=== PATIENT | female | born 1975 | race Caucasian/White ===

== ENCOUNTER 2019-05-19 05:36 | Outpatient (CLI) | payer BC ==
[~2019-05-19] VITALS: Ht 170.2 cm; Wt 129.5 kg
[2019-05-19] MEDS ORDERED: CHOL500049 PO (10:58)
[2019-05-25] MEDS ORDERED: ACHD5005 PO (10:32)
[2019-05-25] MEDS ORDERED: CEPH500C PO (10:32)
== END 2019-05-19 14:59 ==
LOC: PREOP 05:36
PROVIDERS: ATTEND Podiatrist Foot & Ankle Surgery
DX: Z01.818 Encounter for other preprocedural examination (principal)

== ENCOUNTER 2019-05-25 06:03 | Day surgery (SDC) | payer BC ==
[2019-05-25] VITALS (10 sets, daily range): BP systolic 113–142; BP diastolic 72–96
[~2019-05-25] VITALS: Ht 170 cm; Wt 129.5 kg
[~2019-05-25 06:03] MED LIST: CHOL500049 PO
[2019-05-25] MEDS ORDERED: ceFAZolin INJECTION 1,000 MG in WATER (STERILE) FOR INJECTION 10 ML IV ONE (06:15)
[2019-05-25] MEDS ORDERED: ceFAZolin INJECTION 1,000 MG ONE (06:42)
[2019-05-25] MEDS ORDERED: WATER (STERILE) FOR INJECTION 10 ML ONE (06:42)
[2019-05-25] MEDS ORDERED: fentaNYL INJECTION 100 MCG/2 ML AMP ONE (06:48)
[2019-05-25] MEDS ORDERED: MIDAZOLAM 2 MG/2 ML (VERSED) VIAL ONE (06:48)
[2019-05-25] MEDS: LACTATED RINGERS 1,000 ML IV PRN ×2 (07:06→10:09)
[2019-05-25] MEDS ORDERED: BUPIVACAINE 0.5% 30 ML (SENSORCAINE) VIAL ONE (07:11)
[2019-05-25] MEDS ORDERED: LIDOCAINE 1% INJ 20 ML 20 ML VIAL ONE (07:12)
--- NOTE | 2019-05-25 07:23 | Progress Note-Pre Operative ---
Pre-Operative Progress Note H&P Reviewed The H&P was reviewed, patient examined and no changes noted. Date Seen by Provider: May 25, 2019 Time Seen by Provider: 07:23 Date H&P Reviewed: May 25, 2019 Time H&P Reviewed: 07:23 Pre-Operative Diagnosis: Hallux Valgus, left ADAM PRICE DPM May 25, 2019 07:23 POS
[2019-05-25] MEDS ORDERED: DEXAMETHASONE 10 MG/ML (DECADRON) 1 ML VIAL ONE (07:45)
[2019-05-25] MEDS ORDERED: proPOfol 200 MG/20 ML (DIPRIVAN) VIAL IV ONE (08:14)
[2019-05-25] MEDS ORDERED: LIDOCAINE PF 2% 5 ML (XYLOCAINE) VIAL ONE (08:14)
[2019-05-25] MEDS ORDERED: ONDANSETRON 4 MG/2 ML (SDV) Z0FRAN ONE (08:14)
[2019-05-25] MEDS ORDERED: SEVOFLURANE (ULTANE) 15 ML INHAL SOLN ONE ×11 (08:14→10:16)
[2019-05-25] MEDS ORDERED: morphine INJ 10 MG/ML 1ML (SYR OR VIAL) ONE (09:17)
[2019-05-25] MEDS ORDERED: HYDROcodone/APAP 5 MG/325 MG (LORTAB) TAB PO PRN (10:30)
[2019-05-25] MEDS ORDERED: morphine INJ 10 MG/ML 1ML (SYR OR VIAL) IVP ONE (10:30)
[2019-05-25] MEDS ORDERED: MEPERIDINE (DEMEROL) INJ 50 MG/ML IVP ONE (10:30)
[2019-05-25] MEDS ORDERED: ONDANSETRON 4 MG/2 ML (SDV) Z0FRAN IVP PRN (10:30)
[2019-05-25] MEDS ORDERED: LACTATED RINGERS 1,000 ML IV SCH (10:30)
[2019-05-25] MEDS ORDERED: fentaNYL INJECTION 100 MCG/2 ML AMP IVP ONE (10:30)
--- NOTE | 2019-05-25 10:30 | Progress Note-Post Operative ---
Post-Operative Progess Note Surgeon (s)/Rope Coiling Machine Operator (s) Surgeon ADAM PRICE DPM Rope Coiling Machine Operator: none Pre-Operative Diagnosis Hallux Valgus, left Post-Operative Diagnosis same, plus failed hardware Procedure & Operative Findings Date of Procedure 05/25/19 Procedure Performed/Findings Lapidus-elizabeth bunionectomy, Removal of hardware, left foot Anesthesia Type General Estimated Blood Loss Estimated blood loss (mL): minimal Specimens/Packing Specimens Removed hardware from previous bunionectomy ADAM PRICE DPM May 25, 2019 10:30 POS
--- NOTE | 2019-05-25 10:31 | Diagnostic Imaging Report ---
INDICATION: Fluoroscopy utilized in surgery by Dr. Lnae for hardware removal. FINDINGS: No previous films for review. There are holes in the 1st metatarsal shaft consistent with previous hardware. There is sideplate present with bone screws along the 1st metatarsal tarsal joint which appear intact. IMPRESSION: Intraoperative film showing arthrodesis of the 1st MP joint. Hardware present as described. Dictated by: Dictated on workstation # [id number]
[2019-05-25] MEDS ORDERED: ACHD5005 PO (10:32)
[2019-05-25] MEDS ORDERED: CEPH500C PO (10:32)
--- NOTE | 2019-05-25 12:18 | Physical Therapy Progress Note ---
Therapy Progress Note Patient declined PT secondary to multiple foot surgeries prior and has established knee scooter and other AD for home use. Thank you for this referral. 1 ref ([id number]) JOSE C CARLIN PT May 25, 2019 12:18 POS
--- NOTE | 2019-05-25 13:18 | Anesthesia-General Post-Op ---
General Patient Condition Mental Status/LOC: Same as Preop Cardiovascular: Satisfactory Nausea/Vomiting: Absent Respiratory: Satisfactory Pain: Controlled Complications: Absent Post Op Complications Complications None Follow Up Care/Instructions Patient Instructions None needed. Anesthesia/Patient Condition Patient Condition Patient is doing well, no complaints, stable vital signs, no apparent adverse anesthesia problems. No complications reported per nursing. KARI ROSAS CRNA May 25, 2019 13:17 POS
--- NOTE | 2019-05-25 18:26 | OPERATIVE REPORT ---
DATE OF SERVICE: 05/25/2019 SURGEON: Makayla Lane DPM. PREOPERATIVE DIAGNOSES: 1. Hallux abductovalgus metatarsus primus varus. 2. Failed hardware. POSTOPERATIVE DIAGNOSES: 1. Hallux abductovalgus metatarsus primus varus. 2. Failed hardware, left foot. PROCEDURE: 1. Modified Lapidus Ty bunionectomy, left. 2. Removal of failed hardware, left. WOUND CLASS: Clean. ANESTHESIA: General. HEMOSTASIS: Pneumatic thigh tourniquet at 250 mmHg. INDICATIONS: This 44-year-old female presents complaining of painful left foot and bunion deformity. She has had a previous Lapidus bunionectomy. The screw fixation apparently has backed out and is causing some discomfort for the patient. Also, the great toe is drifting laterally and is overlapping and abutting the second digit. This is affecting her ambulation in comfortably wearing shoes. She is willing to proceed after risks and complications were discussed at length. No guarantees were extended to the patient and she is willing to proceed. DESCRIPTION OF PROCEDURE: The patient was brought back to the operating table, placed in secure supine position. General anesthetic was induced. Appropriate timeout was performed. A pneumatic thigh tourniquet was placed on the left lower extremity over several layers of padding. Utilizing aseptic technique, 10 mL of 0.5% Marcaine was injected in a Amaya block to the left foot. The left foot was then prepped and draped in normal sterile manner. The left foot was then elevated, allowed to exsanguinate after which the tourniquet was inflated to 250 mmHg. Attention was then directed to the dorsal aspect of the left foot where along the previous incision, a similar incision was created, which is approximately 10 cm in length. The incision extended from the medial cuneiform to the metatarsophalangeal joint and proximal phalanx area of the left first metatarsophalangeal joint. Dissection was carried out utilizing sharp and blunt dissection. The incision was deepened down to the capsular tissue of the first metatarsophalangeal joint as well as to the medial aspect of the extensor hallucis longus in the area of the hardware associated with the first metatarsal medial cuneiform fusion area. The incision was deepened down to the plate and screws, which were removed. The interfrag screw was very prominent and some inflammatory tissue was noted in the area overlying this screw. This is also in the area of the patient's described discomfort. The hardware was removed completely. Next, due to the fact that the first metatarsal remained in a valgus orientation, a new Lapidus was performed and because it was a short first metatarsal, it is advisable to utilize an allograft spacer. First, a power sagittal saw was utilized to create an opening at the first metatarsal medial cuneiform joint area. A second cut was performed to create more lateral deviation and plantar flexion of the distal first metatarsal. Utilizing a Blain 28 Lapidus system and allograft, an excellent reduction of the hallux valgus deformity was appreciated. First, there was a size 5 allograft Lapidus graft was placed and confirmed by C-arm that it was appropriate reduction of the patient's deformity. Next, a standard 4-hole left Lapidus plate was utilized with a most proximal screw of 3.5 mm diameter and 26 mm of length with locking screw placed. Next, an interfrag screw was applied. It was a 3.5 mm, 38 mm in length from distal dorsal to proximal plantar. Good compression across the allograft and the arthrodesis site was appreciated. Next, a 3.5 locking screw of 16 mm of length was applied to the remaining proximal hole of the locking of the plate. The two distal screws were 3.5 mm screws of 20 mm in length and 16 mm of length respectively. The last screw was a nonlocking screw. Again, C-arm was utilized to confirm appropriate alignment and there is a good reduction of the dorsiflexion and valgus rotation that was noted preoperatively. There was improved sesamoid position as well as alignment of the first metatarsophalangeal joint. There was a good reduction of the lateral deviation of the hallux, but it was then decided that an Ty type procedure would assist in further improvement of the alignment of the hallux. Blunt dissection was carried out into the first intermetatarsal space where a lateral release was performed. A lateral capsulorrhaphy was performed as well as release of the conjoint tendon of the adductor hallucis and the fibular sesamoidal ligament. Next, attention was taken to remove the 28-gauge monofilament wire from the proximal phalanx. Once this was done, a revisional Ty procedure was performed. A sagittal saw was utilized to create the osteotomy with the lateral cortices intact and the base of the osteotomy was medial. Once the gap was closed, this reduced the hallux valgus deformity further. Two river pilot holes were created at the dorsal medial aspect of the osteotomy after which a 28-gauge monofilament wire was then passed through this river pilot hole securing the osteotomy in a closed position. Excellent bony apposition and fixation was appreciated at this time. The whole wound was flushed with copious amounts of normal saline throughout the procedure. Closure was then performed in layers. Deep closure was performed with 3-0 Vicryl, superficial with 4-0 Vicryl, skin was closed with 4-0 Prolene in a horizontal mattress type stitch. Postoperative injection consisted of 12 mL of 0.5% Marcaine plain injected in a local infusion to the surgical site. Postoperative injection also included 10 mg dexamethasone injected into the first intermetatarsal space, left foot. Postoperative dressing consisted of Betadine soaked Adaptic, sterile 4 x 4, sterile Kerlix all secured with a Coban wrap. The patient tolerated the anesthesia and procedure well, was transported from the operating room to the recovery area with vital signs stable and vascular status intact to all digits of the left foot. She was given a prescription for Keflex and Vicodin. She is to follow up in my office in 10 days' period of time or sooner if necessary. Job ID: [id number] DocumentID: [id number] Dictated Date: 05/25/2019 10:47:21 Sticker On Date: 05/25/2019 18:25:18 Dictated By: CHRISTIANE WINKLER
--- OUTSIDE RECORDS SUMMARY | 2019-06-19 05:29 | XMS REPORT ---
Author Author Oriana Rodrigues [facility] Address [address] [place], [place] [id number] Care Team Providers Care Civil Drafting Technician Name Role Phone Fortunato Rodrigues PCP Unavailable Helder Ramirez PreferredProvider Allergies and Adverse Reactions Name Reaction Notes Norman Plan of Treatment Planned Activity Comments Planned Date Planned Time Plan/Goal Urine culture and sensitivity 03/07/2019 12:00 AM Medications Active Name Start Date Estimated Completion Date SIG Co mments Vitamin D3 400 unit oral capsule take 1 c apsule by oral route daily Multiple Vitamins oral tablet take 1 tabl et by oral route daily Calcium 500 500 mg calcium (1,250 mg) oral tablet take 1 tablet by oral route daily ibuprofen 800 mg oral tablet take 1 table t by oral route 2 times a day Cipro 500 mg oral tablet 03/07/2019 03/10/2019 take 1 tablet (500 mg) by oral route every 12 hours for 3 days Name Start Date Expiration Date SIG Comments Mirena Intrauterine IUD 20 mcg/24 hour (5 [address]) [address] 1 device by intrauterine route doxycycline hyclate Oral tablet 20 mg lefty e 1 tablet by oral route daily levofloxacin 500 mg oral tablet 07/23/2018 08/02/2018 take 1 tablet (500 mg) by oral route once daily for 10 days diclofenac sodium 75 mg oral tablet,delayed release (DR/EC) 09/2410/24/2018 take 1 tablet (75 mg) by oral route 2 times per day for 30 days Discontinued Name Start Date Discontinued Date SIG Comments doxycycline hyclate Oral capsule 100 mg 3 take 1 capsule (100 mg) by oral route once daily Mucinex D 60-600 mg oral tablet extended release 12 hr 02/12/2019 Advil Cold and Sinus oral 02/12/2019 albuterol sulfate inhalation 02/12/2019 ipratropium bromide 0.02 % inhalation solution 07/23/2018 inhale 1.25 milliliters (250 mcg) via nebulizer by inhalation route 3 times per day cholecalciferol (vitamin D3) 50,000 unit oral capsule 10/24/2018 01/12/2019 take 1 capsule by oral route once weekly dicyclomine 20 mg oral tablet 01/12/2019 02/12/2019 ta ke 1 tablet (20 mg) by oral route 4 times per day as needed Problem List Not available. Vital Signs Date Time BP-Sys(mm[Hg] BP-Grace(mm[Hg]) HR(bpm) RR(rpm) Temp WT HT HC BMI BSA BMI Percentile O2 Sat(%) 03/07/2019 11:38:00 AM 108 mm[Hg] 86 mm[Hg] 58 {beats}/min 16 rpm 98.1 F 182.25 lbs 67 in 28.5441 kg/m2 1.9768 m2 100 % 02/11/2019 8:02:00 AM 130 mm[Hg] 80 mm[Hg] 84 {beats}/min 16 rpm 97.4 F 187 lbs 67 in 29.29 kg/m2 2.00 m2 97 % 01/12/2019 4:42:00 PM 132 mm[Hg] 84 mm[Hg] 77 {beats}/min 16 rpm 97.5 F 192 lbs 67 in 30.0711 kg/m2 2.029 m2 98 % 10/27/2018 9:27:00 AM 120 mm[Hg] 80 mm[Hg] 65 {beats}/min 98.4 F 187 lbs 67.25 in 29.07 kg/m2 2.01 m2 07/23/2018 6:28:00 PM 128 mm[Hg] 102 mm[Hg] 101 {beats}/min 24 rpm 98.2 F 181.5 lbs 67.25 in 28.2157 kg/m2 1.9764 m2 97 % 06/23/2018 4:41:00 PM 118 mm[Hg] 72 mm[Hg] 68 {beats}/min 16 rpm 97.7 F 188.125 lbs 67.25 in 29.25 kg/m2 2.01 m2 98 % 02/11/2013 8:46:00 AM 122 mm[Hg] 92 mm[Hg] 72 {beats}/min 97.6 F 263.25 lbs 67 in 41.2304 kg/m2 2.3759 m2 07/11/2012 9:49:00 AM 137 mm[Hg] 98 mm[Hg] 90 {beats}/min 97 F 266.25 lbs 67 in 41.70 kg/m2 2.39 m2 06/04/2012 9:16:00 AM 136 mm[Hg] 90 mm[Hg] 66 {beats}/min 97.2 F 264 lbs 67 in 41.3478 kg/m2 2.3792 m2 Social History Name Description Comments Tobacco Never smoker Alcohol Never History of Procedures Date Ordered Description Order Status 06/04/2012 12:00 AM CYTOPATH C/V MANUAL Reviewed 06/04/2012 12:00 AM SPECIMEN HANDLING OFFICE-LAB Reviewed 06/04/2012 12:00 AM CHLAMYDIA CULTURE Reviewed 06/04/2012 12:00 AM N.GONORRHOEAE DNA AMP PROB Reviewed 07/11/2012 12:00 AM URINE TEST Reviewed 07/11/2012 12:00 AM INSERT INTRAUTERINE DEVICE Reviewed 07/11/2012 12:00 AM Mirena Reviewed 06/23/2018 12:00 AM FLU VAC NO PRSV 4 BOBBY 3 YRS+ Reviewed 06/23/2018 12:00 AM THER/PROPH/DIAG INJ SC/IM Reviewed 07/23/2018 12:00 AM Decadron 8mg Injection Reviewed 07/23/2018 12:00 AM Depo-Medrol 80mg Injection Reviewed 07/23/2018 12:00 AM THER/PROPH/DIAG INJ SC/IM Reviewed 10/09/2018 12:00 AM MRI NECK SPINE W/O DYE Reviewed 10/09/2018 12:00 AM X-RAY EXAM L-S SPINE 2/3 VWS Reviewed 10/22/2018 12:00 AM ROUTINE VENIPUNCTURE Reviewed 10/22/2018 12:00 AM COMPREHEN METABOLIC PANEL Reviewed 10/22/2018 12:00 AM GLYCOSYLATED HEMOGLOBIN TEST Reviewed 10/22/2018 12:00 AM VITAMIN D 25 HYDROXY Reviewed 10/22/2018 12:00 AM ASSAY THYROID STIM HORMONE Reviewed 10/22/2018 12:00 AM LIPID PANEL Reviewed 11/05/2018 12:00 AM Screening mammography, bilateral Reviewe d 10/28/2018 12:00 AM MAMMOGRAM BOTH BREASTS Reviewed 12/23/2018 12:00 AM BREAST TOMOSYNTHESIS UNI Reviewed 01/02/2019 12:00 AM ROUTINE VENIPUNCTURE Reviewed 01/02/2019 12:00 AM VITAMIN D 25 HYDROXY Reviewed 03/07/2019 12:08 PM URINALYSIS AUTO W/O SCOPE Reviewed Results Summary Date and Description Results 10/22/2018 8:25 AM GLUCOSE 86 SODIUM 140 POTASS IUM 4.3 CHLORIDE 108.0 mmol/LCO2 26 BUN 13.0 mg/dLCREATININE 0.730 mg/dLSGOT/AST 15 SGPT/ALT 8 ALK PHOS 52 TOTAL PROTEIN 6.1 ALBUMIN 4.0 TOTAL BILI 0.8 CALCIUM 9.40 mg/dLAGE 43 GFR NonAA 86 GFR AA 104 eGFR 86 eGFR AA* >60 mL/min/1.73 [id number] 102 CHOLESTEROL 204.0 mg/dLHDL 54 TOT CHOL/HDL 3.8 LDL (CALC) 130 VITAMIN D 17.7 TSH 0.98 HGB A1C 5.10 %Est Avg Glucose 99.7 01/02/2019 8:24 AM VITAMIN D 29.8 03/07/2019 12:08 PM Glucose Ur-sCnc neg Bilirub Ur Ql neg Ketones Ur Ql Strip trace Sp Gr Ur Qn >1.030 Hgb Ur Ql Strip neg pH Ur-LsCnc 5.5 Prot Ur Ql Strip neg Urobilinogen Ur-mCnc 0.2 Nitrite Ur Ql Strip neg WBC # Ur trace History Of Immunizations Name Date Admin g Name Mfg Code Trade Name Lot# Route Inj Vis Given Vis Pub CVX Influenza 03/20/2017 Not Entered NE Not Entered Not Entered Not Entered 06/17/2018 06/17/2018 158 Influenza 06/23/2018 ID Perceivant or iCouch BCQ Flulaval qu adrivalent [id number] Intramuscular Right Deltoid 06/23/2018 06/17/2018 158 History of Past Illness Name Date of Onset Comments Rosacea Chicken pox Allergic rhinitis Bunion of left foot Bunion of right foot Plantar fasciitis Asthma Reactive hypoglycemia Cervical somatic dysfunction Thoracic region somatic dysfunction Lumbar Somatic Dysfunction Routine gynecological examination Jun 04 2012 9:18AM Special investigations and examinations; examination or test; examination or test, negative result Jul 11 2012 10:00AM IUD insertion Jul 11 2012 9:52AM IUD Check/Removal/Management/Reinsertion Feb 11 2013 8:54AM Flu vaccine need Jun 23 2018 4:56PM Neck pain Jun 23 2018 4:56PM Back pain Jun 23 2018 4:56PM Knee pain Jun 23 2018 4:56PM Bunion of great toe of left foot Jun 23 2018 4:56PM Vitamin D deficiency Jun 23 2018 4:56PM History of bariatric surgery Jun 23 2018 4:56PM Bronchitis, Acute Jul 23 2018 6:33PM Sinusitis, Acute Jul 23 2018 6:33PM Cervicalgia Oct 09 2018 12:25PM Other chronic pain Oct 09 2018 12:25PM Dorsalgia, unspecified Oct 09 2018 12:25PM Other chronic pain Oct 09 2018 12:25PM Screening for ischemic heart disease Oct 22 2018 10:52AM Myalgia Oct 22 2018 10:52AM Reactive hypoglycemia Oct 22 2018 10:52AM History of bariatric surgery Oct 22 2018 10:52AM Encounter for screening mammogram for breast cancer October 27 2 019 1:28PM Encntr for florist's decorator exam (general) (routine) w/o abn findings Oct 27 2018 9:33AM Special screening for malignant neoplasms; breast; oth er screening mammogram Oct 27 2018 9:33AM Abnormal Mammogram Nov 27 2018 4:15PM Vitamin D deficiency Jan 02 2019 10:39AM Right epiphora Jan 12 2019 4:42PM Dysuria Mar 07 2019 11:46AM Payers Insurance Name Company Name Plan Name Plan Number Policy Number Jg cy Group Number Start Date [employer] [id number] N/ A [employer] [id number] N/ A History of Encounters Visit Date Visit Type Provider 03/07/2019 Office visit Fortunato Melendrez PRN 02/11/2019 Office visit Delvin Cutler DO 01/12/2019 Office visit Helder Ramirez FEDERAL JUDICIAL LAW CLERK 01/02/2019 Laboratory Helder Ramirez FEDERAL JUDICIAL LAW CLERK 10/27/2018 Office visit 10/27/2018 Office visit Felicita hill FEDERAL JUDICIAL LAW CLERK 10/22/2018 Laboratory Helder Ramirez FEDERAL JUDICIAL LAW CLERK 07/23/2018 Office visit Jose Morales NP 06/23/2018 Office visit Helder Ramirez FEDERAL JUDICIAL LAW CLERK 02/11/2013 Office visit Kelechi Ramos MD 07/11/2012 Office visit Kelechi Ramos MD 06/04/2012 Office visit Kelechi Ramos MD
--- OUTSIDE RECORDS SUMMARY | 2019-06-19 05:29 | XMS REPORT ---
Author Author Oriana Ramirez [facility] Address [address] [place], [place] [id number] Care Team Providers Care Wood Heel Cementer Name Role Phone Helder Ramirez PCP Helder Ramirez PreferredProvider Allergies and Adverse Reactions Name Reaction Notes NO KNOWN DRUG ALLERGIES [place] Plan of Treatment Planned Activity Comments Planned Date Planned Time Plan/Goal Breast ultrasound 12/23/2018 12:00 AM Medications Active Name Start Date Estimated Completion Date SIG Co mments Mucinex D 60-600 mg oral tablet extended release 12 hr Advil Cold and Sinus oral albuterol sulfate inhalation ipratropium bromide 0.02 % inhalation solution 07/23/2018 inhale 1.25 milliliters (250 mcg) via nebulizer by inhalation route 3 times per day Vitamin D3 400 unit oral capsule take 1 c apsule by oral route daily dicyclomine 20 mg oral tablet 01/12/2019 ta ke 1 tablet (20 mg) by oral route 4 times per day as needed Name Start Date Expiration Date SIG Comments [...] (100 mg) by oral route once daily cholecalciferol (vitamin D3) 50,000 unit oral capsule 10/24/2018 01/12/2019 take 1 capsule by oral route once weekly Problem List Not available. Vital Signs Date Time BP-Sys(mm[Hg] BP-Grace(mm[Hg]) HR(bpm) RR(rpm) Temp WT HT HC BMI BSA BMI Percentile O2 Sat(%) 01/12/2019 4:42:00 PM 132 mmHg 84 mmHg 77 bpm 16 rpm 97.5 F 192 lbs 67 in 30.0711 kg/m 2.029 m 98 % 10/27/2018 9:27:00 AM 120 mmHg 80 mmHg 65 bpm 98.4 F 187 lbs 67.25 in 29.07 kg/m2 2.01 m2 07/23/2018 6:28:00 PM 128 mmHg 102 mmHg 101 bpm 24 rpm 98.2 F 181.5 lbs 67. 25 in 28.2157 kg/m 1.9764 m 97 % 06/23/2018 4:41:00 PM 118 mmHg 72 mmHg 68 bpm 16 rpm 97.7 F 188.125 lbs 67. 25 in 29.25 kg/m2 2.01 m2 98 % 02/11/2013 8:46:00 AM 122 mmHg 92 mmHg 72 bpm 97.6 F 263.25 lbs 67 in 41.2304 kg/m 2.3759 m 07/11/2012 9:49:00 AM 137 mmHg 98 mmHg 90 bpm 97 F 266.25 lbs 67 in 41.70 kg/m2 2.39 m2 06/04/2012 9:16:00 AM 136 mmHg 90 mmHg 66 bpm 97.2 F 264 lbs 67 in 41.3478 kg/m 2.3792 m Social History Name Description Comments Tobacco Never [...] 01/02/2019 12:00 AM VITAMIN D 25 HYDROXY Returned Results Summary Date and Description Results 10/22/2018 8:25 AM GLUCOSE 86 SODIUM 140 POTASS IUM 4.3 CHLORIDE 108.0 mmol/LCO2 26 BUN 13.0 mg/dLCREATININE 0.730 mg/dLSGOT/AST 15 SGPT/ALT 8 ALK PHOS 52 TOTAL PROTEIN 6.1 ALBUMIN 4.0 TOTAL BILI 0.8 CALCIUM 9.40 mg/dLAGE 43 GFR NonAA 86 GFR AA 104 eGFR 86 eGFR AA* >60 mL/min/1.73 [id number] 102 CHOLESTEROL 204.0 mg/dLHDL 54 TOT CHOL/HDL 3.8 LDL (CALC) 130 VITAMIN D 17.7 TSH 0.98 HGB A1C 5.10 %Est Avg Glucose 99.7 History Of Immunizations Name Date Admin Mfg Name Mfg Code Trade Name Lot# Route Inj Vis Given Vis Pub CVX Influenza 03/20/2017 Not Entered NE Not Entered Not Entered Not Entered 06/17/2018 06/17/2018 158 Influenza 06/23/2018 ID Gema or Userm[employer] BCQ Flulaval qu adrivalent [id number] Intramuscular Right Deltoid 06/23/2018 06/17/2018 158 History of Past Illness Name Date of Onset Comments Rosacea Chicken pox Allergic rhinitis Bunion of left foot Bunion of right foot Plantar fasciitis Asthma Reactive hypoglycemia Routine gynecological examination Jun 04 2012 9:18AM [...] screening mammogram for breast cancer October 27 019 1:28PM Encntr for net developer consultant exam (general) (routine) w/o abn findings Oct 27 2018 9:33AM Special screening for malignant neoplasms; breast; oth er screening mammogram Oct 27 2018 9:33AM Abnormal Mammogram Nov 27 2018 4:15PM Vitamin D deficiency Jan 02 2019 10:39AM Right epiphora Jan 12 2019 4:42PM Payers Insurance Name Company Name Plan Name Plan Number Policy Number [facility] Group Number Start Date [employer]BS [employer] [facility] [id number] N/ A [employer] [facility] [id number] N/ A History of Encounters Visit Date Visit Type Provider 01/12/2019 Office visit Helder Ramirez CREDIT PRODUCT ANALYST 01/02/2019 Laboratory Helder Ramirez CREDIT PRODUCT ANALYST 10/27/2018 Office visit 10/27/2018 Office visit Felicita hill CREDIT PRODUCT ANALYST 10/22/2018 Laboratory Helder Ramirez CREDIT PRODUCT ANALYST 07/23/2018 Office visit Jose Morales NP 06/23/2018 Office visit Helder Ramirez APRN 02/11/2013 Office visit Kelechi Ramos MD 07/11/2012 Office visit Kelechi Ramos MD 06/04/2012 Office visit Kelechi Ramos MD
--- OUTSIDE RECORDS SUMMARY | 2019-06-19 05:30 | XMS REPORT ---
Author Author Oriana Ramirez [facility] Address [address] [place], [place] [id number] Care Team Providers Care Material Specialist Name Role Phone Helder Ramirez PCP Helder Ramirez PreferredProvider Allergies and Adverse Reactions Name Reaction Notes NO KNOWN DRUG ALLERGIES Plan of Treatment Planned Activity Comments Planned Date Planned Time Plan/Goal MRI CERVICAL SPINE W/O CONTRAST 10/09/2018 12:00 AM CMP 10/22/2018 12:00 AM HGB A1C 10/22/2018 12:00 AM VITAMIN D (25 HYDROXY) 10/22/2018 12:00 AM TSH 10/22/2018 12:00 AM LIPID PANEL 10/22/2018 12:00 AM Medications Active Name Start Date Estimated Completion Date SIG Co mments Mucinex D 60-600 mg oral tablet extended release 12 hr Advil Cold and Sinus oral albuterol sulfate inhalation ipratropium bromide 0.02 % inhalation solution 07/23/2018 inhale 1.25 milliliters (250 mcg) via nebulizer by inhalation route 3 times per day diclofenac sodium 75 mg oral tablet,delayed release (DR/EC) 09/2410/24/2018 take 1 tablet (75 mg) by oral route 2 times per day for 30 days Name Start Date Expiration Date SIG Comments Mirena Intrauterine IUD 20 mcg/24 hour ([address]) [address] 1 device by intrauterine route doxycycline hyclate Oral tablet 20 mg lefty e 1 tablet by oral route daily levofloxacin 500 mg oral tablet 07/23/2018 08/02/2018 take 1 tablet (500 mg) by oral route once daily for 10 days Discontinued Name Start Date Discontinued Date SIG Comments doxycycline hyclate Oral capsule 100 mg 3 take 1 capsule (100 mg) by oral route once daily Problem List Not available. Vital Signs Date Time BP-Sys(mm[Hg] BP-Grace(mm[Hg]) HR(bpm) RR(rpm) Temp WT HT HC BMI BSA BMI Percentile O2 Sat(%) 07/23/2018 6:28:00 PM 128 mmHg 102 mmHg [...] THER/PROPH/DIAG INJ SC/IM Reviewed 10/09/2018 12:00 AM X-RAY EXAM L-S SPINE 2/3 VWS Returned 10/22/2018 12:00 AM ROUTINE VENIPUNCTURE Reviewed Results Summary Not available. History Of Immunizations Name Date Admin Mfg Name Mfg Code Trade Name Lot# Route Inj Vis Given Vis Pub CVX Influenza 03/20/2017 Not Entered NE Not Entered Not Entered Not Entered 06/17/2018 06/17/2018 158 Influenza 06/23/2018 ID Hydrostor [place] or [place] BCQ Flulaval qu adrivalent [id number] Intramuscular Right [...] of bariatric surgery Oct 22 2018 10:52AM Payers Insurance Name Company Name Plan Name Plan Number Policy Number Jg Group Number Start Date BCBS Bcbs [facility] [id number] N/ A BCBS Bcbs [facility] [id number] N/ A History of Encounters Visit Date Visit Type Provider 10/22/2018 Laboratory Helder Ramirez POWDER AND PRIMER CANNING LEADER 07/23/2018 Office visit Jose Morales NP 06/23/2018 Office visit Helder Ramirez POWDER AND PRIMER CANNING LEADER 02/11/2013 Office visit Kelechi Ramos MD 07/11/2012 Office visit Kelechi Ramos MD 06/04/2012 Office visit Kelechi Ramos MD
--- OUTSIDE RECORDS SUMMARY | 2019-06-19 05:30 | XMS REPORT ---
Author Oriana Thorpe [facility] Address [address] [place], [place] [id number] Care Team Providers Care Electrician Marine Name Role Phone Felicita Tavarez PCP Helder Ramirez PreferredProvider Allergies and Adverse Reactions Name Reaction Notes NO KNOWN DRUG ALLERGIES Plan of Treatment Planned Activity Comments Planned Date Planned Time Plan/Goal Breast ultrasound 12/23/2018 12:00 AM Unilateral Diagnostic Mammo with Tomosynthesis 9 12:00 AM Medications Active Name Start Date Estimated Completion Date SIG Co mments Mucinex D 60-600 mg oral tablet extended release 12 hr Advil Cold and Sinus oral albuterol sulfate inhalation ipratropium bromide 0.02 % inhalation solution 07/23/2018 inhale 1.25 milliliters (250 mcg) via nebulizer by inhalation route 3 times per day cholecalciferol (vitamin D3) 50,000 unit oral capsule 10/24/2018 take 1 capsule by oral route once weekly Name Start Date Expiration Date SIG Comments [...] HC BMI BSA BMI Percentile O2 Sat(%) 10/27/2018 9:27:00 AM 120 mmHg 80 mmHg 65 bpm 98.4 F 187 lbs 67.25 in 29.0707 kg/m 2.0062 m 07/23/2018 6:28:00 PM 128 mmHg 102 mmHg 101 bpm 24 rpm 98.2 F 181.5 lbs 67. 25 in 28.22 kg/m2 1.98 m2 97 % 06/23/2018 4:41:00 PM 118 mmHg [...] 10/28/2018 12:00 AM MAMMOGRAM BOTH BREASTS Reviewed Results Summary Date and Description Results 10/22/2018 8:25 AM GLUCOSE 86 SODIUM 140 POTASS IUM 4.3 CHLORIDE 108 CO2 26 BUN 13 CREATININE 0.73 SGOT/AST 15 SGPT/ALT 8 ALK PHOS 52 TOTAL PROTEIN 6.1 ALBUMIN 4.0 TOTAL BILI 0.8 CALCIUM 9.4 AGE 43 GFR NonAA 86 GFR AA 104 eGFR 86 eGFR AA* >60 TRIGLYCERIDES 102 CHOLESTEROL 204 HDL 54 TOT CHOL/HDL 3.8 LDL (CALC) 130 VITAMIN D 17.7 TSH 0.98 HGB A1C 5.10 %Est Avg Glucose 99.7 History Of Immunizations Name Date Admin Mfg Name Mfg Code Trade Name Lot# Route Inj Vis Given Vis Pub CVX Influenza 03/20/2017 Not Entered NE Not Entered Not Entered Not Entered 06/17/2018 06/17/2018 158 Influenza 06/23/2018 ID [employer] or [place] BCQ Flulaval qu adrivalent [id number] Intramuscular Right [...] cancer October 27 019 1:28PM 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 for ecological economist exam (general) (routine) w/o abn findings Oct 27 2018 9:33AM Special screening for malignant neoplasms; breast; oth er screening mammogram Oct 27 2018 9:33AM Abnormal Mammogram Nov 27 2018 4:15PM Payers Insurance Name Company Name Plan Name Plan Number Policy Number Jg cy Group Number Start Date BCBS [employer] [place] [id number] N/ A BCBS [employer] [place] [id number] N/ A History of Encounters Visit Date Visit Type Provider 10/27/2018 Office visit 10/27/2018 Office visit Felicita hill BRAND SALES CONSULTANT 10/22/2018 Laboratory Helder Ramirez BRAND SALES CONSULTANT 07/23/2018 Office visit Jose Morales NP 06/23/2018 Office visit Helder Ramirez BRAND SALES CONSULTANT 02/11/2013 Office visit Kelechi Ramos MD 07/11/2012 Office visit Kelechi Ramos MD 06/04/2012 Office visit Kelechi Ramos MD
--- OUTSIDE RECORDS SUMMARY | 2019-06-19 05:30 | XMS REPORT ---
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 (general) (routine) w/o abn findings Oct 27 2018 9:33AM Special screening for malignant neoplasms; breast; oth er screening mammogram Oct 27 2018 9:33AM Abnormal Mammogram Nov 27 2018 4:15PM Payers Insurance Name Company Name Plan Name Plan Number Policy Number Jg cy Group Number Start Date BCBS [employer] [place] [id number] N/ A BCBS [employer] [place] [id number] N/ A History of Encounters Visit Date Visit Type Provider 10/27/2018 Office visit 10/27/2018 Office visit Felicita hill OIL AND GAS FIELD TECHNICIAN 10/22/2018 Laboratory Helder Ramirez OIL AND GAS FIELD TECHNICIAN 07/23/2018 Office visit Jose Morales NP 06/23/2018 Office visit Helder Ramirez OIL AND GAS FIELD TECHNICIAN 02/11/2013 Office visit Kelechi Ramos MD 07/11/2012 Office visit Kelechi Ramos MD 06/04/2012 Office visit Kelechi Ramos MD
--- OUTSIDE RECORDS SUMMARY | 2019-06-19 05:30 | XMS REPORT ---
Author Author Oriana Tavarez [facility] Address [address] [place], [place] [id number] Care Team Providers Care Culture Room Worker Name Role Phone Felicita Tavarez PCP Helder Ramirez PreferredProvider Allergies and Adverse Reactions Name Reaction Notes NO KNOWN DRUG ALLERGIES Plan of Treatment Not available. Medications Active Name Start Date Estimated Completion [...] 12:00 AM MRI NECK SPINE W/O DYE Returned 10/09/2018 12:00 AM X-RAY EXAM L-S SPINE 2/3 VWS Returned 10/22/2018 12:00 AM ROUTINE VENIPUNCTURE Reviewed 10/22/2018 12:00 AM COMPREHEN METABOLIC PANEL Returned 10/22/2018 12:00 AM GLYCOSYLATED HEMOGLOBIN TEST Returned 10/22/2018 12:00 AM VITAMIN D 25 HYDROXY Returned 10/22/2018 12:00 AM ASSAY THYROID STIM HORMONE Returned 10/22/2018 12:00 AM LIPID PANEL Returned 10/28/2018 12:00 AM MAMMOGRAM BOTH BREASTS Reviewed Results Summary Not available. 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) w/o abn findings Oct 27 2018 9:33AM Special screening for malignant neoplasms; breast; oth er screening mammogram Oct 27 2018 9:33AM Payers Insurance Name Company Name Plan Name Plan Number Policy Number Jg cy Group Number Start Date BCBS [employer] [place] [id number] N/ A BCBS [employer] [place] [id number] N/ A History of Encounters Visit Date Visit Type Provider 10/27/2018 Office visit 10/27/2018 Office visit Felicita hill GLAZE SPRAYER 10/22/2018 Laboratory Helder Ramirez GLAZE SPRAYER 07/23/2018 Office visit Jose Morales NP 06/23/2018 Office visit Helder Ramirez GLAZE SPRAYER 02/11/2013 Office visit Kelechi Ramos MD 07/11/2012 Office visit Kelechi Ramos MD 06/04/2012 Office visit Kelechi Ramos MD
--- OUTSIDE RECORDS SUMMARY | 2019-06-19 05:30 | XMS REPORT ---
Author Author Oriana Ramirez [facility] Address [address] [place], [place] [address] Care Team Providers Care Technical Asst Name Role Phone Helder aRmirez PCP Helder Ramirez PreferredProvider Allergies and Adverse Reactions Name Reaction Notes NO KNOWN DRUG ALLERGIES Plan of Treatment Planned Activity Comments Planned Date Planned Time Plan/Goal Breast ultrasound 12/23/2018 12:00 AM VITAMIN D (25 HYDROXY) 01/02/2019 12:00 AM Medications Active Name Start Date [...] Reviewed 01/02/2019 12:00 AM ROUTINE VENIPUNCTURE Reviewed Results Summary Date and Description Results [...] Entered 06/17/2018 06/17/2018 158 Influenza 06/23/2018 ID [employer] or [employer] BCQ Flulaval qu adrivalent [id number] Intramuscular Right [...] October 27 2 019 1:28PM 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 (general) (routine) w/o abn findings Oct 27 2018 9:33AM Special screening for malignant neoplasms; breast; ot er screening mammogram Oct 27 2018 9:33AM Abnormal Mammogram Nov 27 2018 4:15PM Vitamin D deficiency Jan 02 2019 10:39AM Payers Insurance Name Company Name Plan Name Plan Number Policy Number [facility] Group Number Start Date BCBS [employer] [place] [id number] N/ A BCBS [employer] [place] [id number] N/ A History of Encounters Visit Date Visit Type Provider 01/02/2019 Laboratory Helder Ramirez SYSTEM SAFETY ENGINEER 10/27/2018 Office visit 10/27/2018 Office visit Felicita hill SYSTEM SAFETY ENGINEER 10/22/2018 Laboratory Helder Ramirez SYSTEM SAFETY ENGINEER 07/23/2018 Office visit Jose Morales NP 06/23/2018 Office visit Helder Ramirez SYSTEM SAFETY ENGINEER 02/11/2013 Office visit Kelechi Ramos MD 07/11/2012 Office visit Kelechi Ramos MD 06/04/2012 Office visit Kelechi Ramos MD
--- OUTSIDE RECORDS SUMMARY | 2019-06-19 05:30 | XMS REPORT ---
Author Author Oriana Ramirez [facility] Phys[facility] oup Address [address] [place], [place] [phone] Care Team Providers Care School Aide Name Role Phone Helder Ramirez PCP Helder Ramirez PreferredProvider Allergies and Adverse Reactions Name Reaction Notes NO KNOWN DRUG ALLERGIES [place] Plan of Treatment Planned Activity Comments Planned [...] 104 eGFR 86 eGFR AA* >60 mL/min/1.73 [id number] 102 CHOLESTEROL 204.0 mg/dLHDL 54 TOT CHOL/HDL 3.8 LDL (CALC) 130 VITAMIN D 17.7 TSH 0.98 HGB A1C 5.10 %Est Avg Glucose 99.7 History Of Immunizations Name Date Admin Mfg Name Mfg Code Trade Name Lot# Route Inj Vis Given Vis Pub CVX Influenza 03/20/2017 Not Entered NE Not Entered Not Entered Not Entered 06/17/2018 06/17/2018 158 Influenza 06/23/2018 ID [employer] or [employer] BCQ Flulaval qu adrivalent [id number] Intramuscular Right [...] cancer October 27 019 1:28PM Encntr for physician gynecologist exam (general) (routine) w/o abn findings Oct 27 2018 9:33AM Special screening for malignant neoplasms; breast; oth er screening mammogram Oct 27 2018 9:33AM Abnormal Mammogram Nov 27 2018 4:15PM Vitamin D deficiency Jan 02 2019 10:39AM Payers Insurance Name Company Name Plan Name Plan Number Policy Number [facility] Group Number Start Date BCBS Bcbs [facility] [id number] N/ A BCBS Bcbs [facility] [id number] N/ A History of Encounters Visit Date Visit Type Provider 01/12/2019 Office visit Helder Ramirez SHIP UNLOADER 01/02/2019 Laboratory Helder Ramirez SHIP UNLOADER 10/27/2018 Office visit 10/27/2018 Office visit Felicita hill SHIP UNLOADER 10/22/2018 Laboratory Helder Ramirez SHIP UNLOADER 07/23/2018 Office visit Jose Morales NP 06/23/2018 Office visit Helder Ramirez SHIP UNLOADER 02/11/2013 Office visit Kelechi Ramos MD 07/11/2012 Office visit Kelechi Ramos MD 06/04/2012 Office visit Kelechi Ramos MD
--- OUTSIDE RECORDS SUMMARY | 2019-06-19 05:30 | XMS REPORT ---
Author Author Oriana Tavarez [facility] oup Address [address] [place], [place] [address] Care Team Providers Care Video Network Engineer Name Role Phone Felicita Tavarez PCP Helder Ramirez PreferredProvider Allergies and Adverse Reactions Name Reaction Notes NO KNOWN DRUG ALLERGIES Plan of Treatment Planned Activity Comments Planned Date Planned Time Plan/Goal Pap smear 10/27/2018 9:56 AM Medications Active Name Start Date Estimated [...] Returned 10/22/2018 12:00 AM LIPID PANEL Returned Results Summary Not available. History Of Immunizations Name Date Admin Mfg Name Mfg Code Trade Name Lot# Route Inj Vis Given Vis Pub CVX Influenza 03/20/2017 Not Entered NE Not Entered Not Entered Not Entered 06/17/2018 06/17/2018 158 Influenza 06/23/2018 ID [employer] or [place] BCQ Flulaval qu adrivalent [id number] Intramuscular Right [...] for breast cancer October 27 019 1:28PM Payers Insurance Name Company Name Plan Name Plan Number Policy Number Jg cy Group Number [facility] Date [id number] N/ [facility] [id number] N/ A History of Encounters Visit Date Visit Type Provider 10/27/2018 Office visit Felicita hill STATE TROOPER 10/22/2018 Laboratory Helder Ramirez STATE TROOPER 07/23/2018 Office visit Jose Morales NP 06/23/2018 Office visit Helder Ramirez STATE TROOPER 02/11/2013 Office visit Kelechi Ramos MD 07/11/2012 Office visit Kelechi Ramos MD 06/04/2012 Office visit Kelechi Ramos MD
--- OUTSIDE RECORDS SUMMARY | 2019-06-19 05:31 | XMS REPORT ---
Author Author Oriana Morales [facility] o[facility] Address [address] [place], [place] [address] Care Team Providers Care Director Meetings Name Role Phone Jose Morales PCP Helder Ramirez PreferredProvider Allergies and Adverse Reactions Name Reaction Notes NO KNOWN DRUG ALLERGIES Plan of Treatment Not available. Medications Active Name Start Date Estimated Completion Date SIG Co mments Mucinex D 60-600 mg oral tablet extended release 12 hr Advil Cold and Sinus oral albuterol sulfate inhalation levofloxacin 500 mg oral tablet 07/23/2018 08/02/2018 take 1 tablet (500 mg) by oral route once daily for 10 days ipratropium bromide 0.02 % inhalation solution 07/23/2018 inhale 1.25 milliliters (250 mcg) via nebulizer by inhalation route 3 times per day Name Start Date Expiration Date SIG Comments Mirena Intrauterine IUD 20 mcg/24 hour ([address] 1 device by intrauterine route doxycycline hyclate Oral tablet 20 mg lefty e 1 tablet by oral route daily Discontinued Name Start Date Discontinued Date SIG [...] 07/23/2018 12:00 AM THER/PROPH/DIAG INJ SC/IM Reviewed Results Summary Not available. History Of Immunizations Name Date Admin Mfg Name Mfg Code Trade Name Lot# Route Inj Vis Given Vis Pub CVX Influenza 03/20/2017 Not Entered NE Not Entered Not Entered Not Entered 06/17/2018 06/17/2018 158 Influenza 06/23/2018 ID [email or web address] or [employer] BCQ Flulaval qu adrivalent [id number] Intramuscular Right [...] 6:33PM Sinusitis, Acute Jul 23 2018 6:33PM Payers Insurance Name Company Name Plan Name Plan Number Policy Number Jg cy Group Number Start Date BCBS Bcbs [facility] [id number] N/ A BCBS Bcbs [facility] [id number] N/ A History of Encounters Visit Date Visit Type Provider 07/23/2018 Office visit Jose Morales NP 06/23/2018 Office visit Helder Ramirez ELECTRIC SCREW DRIVER OPERATOR 02/11/2013 Office visit Kelechi Ramos MD 07/11/2012 Office visit Kelechi Ramos MD 06/04/2012 Office visit Kelechi Ramos MD
--- OUTSIDE RECORDS SUMMARY | 2019-06-19 05:31 | XMS REPORT ---
Author Author Oriana Morales [facility] Phys[facility] oup Address [address] [place], [place] [address] Care Team Providers Care Controls Designer Name Role Phone Jose Morales PCP Helder Ramirez PreferredProvider Allergies and Adverse Reactions Name Reaction Notes NO KNOWN DRUG ALLERGIES Plan of Treatment Planned Activity Comments Planned Date Planned Time Plan/Goal MRI CERVICAL SPINE W/O CONTRAST 10/09/2018 12:00 AM Medications Active Name Start Date [...] Entered 06/17/2018 06/17/2018 158 Influenza 06/23/2018 ID [employer] or [employer] BCQ Flulaval qu adrivalent [id number] Intramuscular Right [...] Other chronic pain Oct 09 2018 12:25PM Payers Insurance Name Company Name Plan Name Plan Number Policy Number Jg cy Group Number Start Date BCBS Bcbs [facility] [id number] N/ A [facility] [id number] N/ A History of Encounters Visit Date Visit Type Provider 07/23/2018 Office visit Jose Morales NP 06/23/2018 Office visit Helder Ramirez OCCUPATIONAL SAFETY AND HEALTH MANAGER 02/11/2013 Office visit Kelechi Ramos MD 07/11/2012 Office visit Kelechi Ramos MD 06/04/2012 Office visit Kelechi Ramos MD
--- OUTSIDE RECORDS SUMMARY | 2019-06-19 05:31 | XMS REPORT ---
Author Author Oriana Aragon Organization [facility] Address [address] [place] [address] Care Team Providers Care Showroom Executive Director Name Role Phone Chelsea Aragon Unavailable PROBLEMS Type Condition ICD9-CM Code [id number] Code Onset Dates Condition S tatus SNOMED Code Problem Conjunctivitis, rosacea 372.31 Active 83730811 Problem Bunion of great toe of left foot 727.1 Active 655929883 Problem Vitamin D deficiency 268.9 Active 84869172 Problem Obesity (BMI 30.0-34.9) E66.9 Active 058127327839725 Problem General Medical Exam Adult Z00.00 Act gilbert 830724092 Problem Gynecological Exam Normal Z01.419 Acti ve [id number] Problem Hypertriglyceridemia E78.1 Active 457205789 Problem Screening For Breast Cancer NOT MAMMOGRAM Z12.39 Active 032516578 Problem Vitamin D deficiency, unspecified E55.9 Active 56606461 Problem Morbid obesity with BMI of 45.0-49.9, adult 278.01 Active 864954472 Problem Allergic Rhinitis Unspecified 477.9 Active 72098737 Problem Back Pain, Low 724.2 Active 00790 9007 Problem Rosacea 695.3 Active 416009528 Problem Hyperhidrosis, 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 A ctive 001456048 Problem Hypertriglyceridemia 272.1 Active 229898908 ALLERGIES No Information ENCOUNTERS Encounter Location Date Diagnosis [facility] [address] [facility] [address] [place] [address] October, Wellness Examination Adult Z 00.00 ; Screening For Cervical Cancer Z12.4 ; Vitamin D deficiency, unspecified E55.9 ; Screening For Breast Cancer Z12.31 and Status Post Bariatric Surgery Z98.84 [facility] [address] [facility] [address] [place] [address] October, Overweight E66.3 and Body ma ss index (BMI) 27.0-27.9, adult Z68.27 [facility], [facility] [address] [facility] [address] [facility] [place] [address] October, [facility], [facility] [address] [facility] [address] [place] [address] Mar, Overweight E66.3 ; Vitamin D deficiency, unspecified E55.9 and Vaccine Flu Z23 [facility], [facility] [address] [facility] [address] [facility] [place] [address] Feb, Obesity (BMI 30.0-34.9) E66. 9 [facility], [facility] [address] [facility] [address] [facility] [place] [address] Dec, Obesity (BMI 30.0-34.9) E66. 9 [facility], [facility] [address] [facility] [address] [facility] [place] [address] October, General Medical Exam Adult Z 00.00 ; Screening For Breast Cancer NOT MAMMOGRAM Z12.39 ; Vitamin D deficiency, unspecified E55.9 and Gynecological Exam Normal Z01.419 [facility], [facility] [address] [facility] [address] [facility] [place] [address] 14 Sep, 2015 Exam Gynecological Routine V 72.31 ; Exam General Adult Medical V70.0 ; Mammogram, Routine V76.12 ; Hypertriglyceridemia E78.1 ; Exam Gynecological Without Abnormal Findings Z01.419 and Exam General Adult Without Abnormal Findings Z00.00 [facility], [facility] [address] [facility] [address] [facility] [place] [address] Apr, [facility], [facility] [address] [facility] [address] [place] [address] Jan, Vitamin D deficiency 268.9 [facility], [facility] [address] [facility] [address] [facility] [place] [address] Jan, Vitamin D deficiency 268.9 [facility], [facility] [address] [facility] [address] [place] [address] Nov, Mammogram, Routine V76.12 [facility], [facility] [address] [facility] [address] [facility] [place] [address] Nov, Vitamin D deficiency 268.9 [facility], [facility] [address] [address] 08 Nov, 2014 Hypertriglyceridemia 272.1 a nd Nondisplaced fracture of first metatarsal bone with delayed healing V54.19 [facility], [facility] [address] [address] 05 Nov, 2014 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 and Non displaced fracture of first metatarsal bone with delayed healing V54.19 [facility], [facility] [address] [address] October, [facility], [facility] [address] [address] Aug, Lip lesion 528.5 [facility], [facility] [address] [address] Aug, [facility], [facility] [address] [address] Aug, Pre-op evaluation V72.84 ; H ypertriglyceridemia 272.1 ; Bunion of great toe of left foot 727.1 and Conjunctivitis, rosacea 372.31 Refills UNKNOWN Aug, [facility], [facility] [address] [address] Aug, Conjunctivitis, rosacea 372. 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 [facility], [facility] [address] [address] 09 Feb, 2014 Hyperhidrosis, 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 [facility], [facility] [address] [address] Jan, Low back pain 724.2 ; SOMAT DYSFUNC LUMBAR REG 739.3 ; SOMAT DYSFUNC SACRAL REG 739.4 and SOMAT DYSFUNC THORAC REG 739.2 [facility], [facility] [address] [address] Nov, Obesity, morbid: BMI 40 or g reater 278.01 ; Plantar fascial fibromatosis 728.71 ; Joint pain, Lower leg 719.46 and Elevated Blood Pressure w/o DX Hypertension 796.2 [facility], [facility] [address] [place] [address] Nov, [facility], [facility] [address] [place] [address] Nov, Neck Pain 723.1 ; SOMAT DYSF [place] CERVIC REG 739.1 and SOMAT DYSFUNC THORAC REG 739.2 [facility], [facility] [address] [place] [address] October, Obesity: BMI 30-39.9 278.00 [facility], [facility] [address] [place] [address] Sep, Obesity: BMI 30-39.9 278.00 [facility], [facility] [address] [place] [address] Aug, Obesity: BMI 30-39.9 278.00 [facility], [facility] [address] [place] [address] Jun, Exam General Adult Medical V 70.0 ; Exam Laboratory part of Medical Exam V72.62 and Vaccine, DTP or DTaP V06.1 [facility], [facility] [address] [place] [address] Jun, Exam Gynecological Routine V 72.31 ; Exam General Adult Medical V70.0 ; Obesity: BMI 30-39.9 278.00 and Mammogram, Routine V76.12 [facility], [facility] [address] [place] [address] Jun, [facility], [employer] [address] [facility] [address] [place] [address] Jun, Backache, Unspecified 724.5 ; SOMAT DYSFUNC THORAC REG 739.2 and SOMAT DYSFUNC PELVIC REG 739.5 [facility], [employer] [address] [facility] [address] [place] [address] May, Back Pain, Low 724.2 and Obe sity/overweight 278.00 IMMUNIZATIONS No Known Immunizations SOCIAL HISTORY Never Assessed REASON FOR VISIT Update [employer] Demographics PLAN OF CARE VITAL SIGNS MEDICATIONS No Known Medications RESULTS No Results PROCEDURES No Known procedures INSTRUCTIONS MEDICATIONS ADMINISTERED No Known Medications MEDICAL (GENERAL) HISTORY Type Description Date Surgical History right knee arthoscopy 2007 Surgical History D&C x2 w/ miscarriages Surgical History foot surgery x2 Right foot 2014 Surgical History stomach sleeve apr 21 2015 Surgical History Hystorectomy 2016 Surgical History Gallbladder Jan 2017 Hospitalization History pre-eclampsia 2005
--- OUTSIDE RECORDS SUMMARY | 2019-06-19 05:31 | XMS REPORT ---
Author Author Oriana Morales [facility] Address [address] [place], [place] [address] Care Team Providers Care Restaurant Delivery Driver Name Role Phone Jose Morales PCP Helder Ramirez PreferredProvider Allergies and Adverse Reactions Name Reaction Notes NO KNOWN DRUG ALLERGIES Plan of Treatment Planned Activity Comments Planned Date Planned Time Plan/Goal MRI CERVICAL SPINE W/O CONTRAST 10/09/2018 12:00 AM Lumbar Spine 2-3 Views - Main 10/09/2018 12:00 AM Medications Active Name Start [...] Entered 06/17/2018 06/17/2018 158 Influenza 06/23/2018 ID Biomedical [place] or [place] BCQ Flulaval qu adrivalent [id number] Intramuscular Right [...] cy Group Number Start Date BCBS Bcbs [facility] [id number] N/ A BCBS Bcbs [facility] [id number] N/ A History of Encounters Visit Date Visit Type Provider 07/23/2018 Office visit Jose Morales NP 06/23/2018 Office visit Helder Ramirez SENIOR SYSTEMS DEVELOPER 02/11/2013 Office visit Kelechi Ramos MD 07/11/2012 Office visit Kelechi Ramos MD 06/04/2012 Office visit Kelechi Ramos MD
--- OUTSIDE RECORDS SUMMARY | 2019-06-19 05:31 | XMS REPORT | Continuity of Care Document ---
Author Organization Unknown Address Unknown Phone Unavailable Allergies Active Description Code Type Severity Reaction Onset Reported/Identified Relationship to Patient Clinical Status Yes strawberry [id number] Drug Allerg y Unknown N/A 05/19/2019 Medications There is no data. Problems Date Dx Coded Attending Type Code Diagnosis Diagnosed By 05/19/2019 ALBERT DPM, ADAM Q Ot Z01.818 ENCOUNTER FOR OTHER PREPROCEDURAL EXAMIN 05/20/2019 ALBERT DPM, ADAM Q Ot Z01.818 ENCOUNTER FOR OTHER PREPROCEDURAL EXAMIN 05/27/2019 ALBERT DPM, ADAM Q Ot E66. 01 MORBID (SEVERE) OBESITY DUE TO EXCESS CA 05/27/2019 ALBERT DPM, ADAM Q Ot M20. 12 HALLUX VALGUS (ACQUIRED), LEFT FOOT 05/27/2019 ALBERT DPM, ADAM Q Ot T84.84XA PAIN DUE TO INTERNAL ORTHOPEDIC PROSTH D 05/27/2019 ALBERT DPM, ADAM Q Ot Z68. 42 BODY MASS INDEX (BMI) 45.0-49.9, ADULT 05/27/2019 ALBERT DPM, ADAM Q Ot Z90. 49 ACQUIRED ABSENCE OF OTHER SPECIFIED PART 05/27/2019 ALBERT DPM, ADAM Q Ot Z90.710 ACQUIRED ABSENCE OF BOTH CERVIX AND UTER 05/27/2019 ALBERT DPM, ADAM Q Ot Z91.018 ALLERGY TO OTHER FOODS 05/31/2019 ALBERT DPM, ADAM Q Ot E66. 01 MORBID (SEVERE) OBESITY DUE TO EXCESS CA 05/31/2019 ALBERT DPM, ADAM Q Ot M20. 12 HALLUX VALGUS (ACQUIRED), LEFT FOOT 05/31/2019 ALBERT DPM, ADAM Q Ot T84.84XA PAIN DUE TO INTERNAL ORTHOPEDIC PROSTH D 05/31/2019 ALBERT DPM, ADAM Q Ot Z68. 42 BODY MASS INDEX (BMI) 45.0-49.9, ADULT 05/31/2019 ALBERT DPM, ADAM Q Ot Z90. 49 ACQUIRED ABSENCE OF OTHER SPECIFIED PART 05/31/2019 ALBERT DPANTONI YuIN Q Ot Z90.710 ACQUIRED ABSENCE OF BOTH CERVIX AND UTER 05/31/2019 ALBERT DPANTONI YuIN Q Ot Z91.018 ALLERGY TO OTHER FOODS Procedures There is no data. Results Test Result Range Methicillin resistant Staphylococcus aur eus (MRSA) screening culture - 05/25/19 06:25 Methicillin resistant Staphylococcus aureus (MRSA) scr eening culture NEG NRG Encounters ACCT No. Visit Date/Time Discharge Status Pt. Type Provider Facility Loc./Unit Complaint [id number] 05/08/2019 08:32:10 05/08/2019 23:59: 59 CLS Outpatient Helder Ramirez [id number] 03/25/2019 11:25:36 03/25/2019 23:59: 59 CLS Outpatient Helder Ramirez [id number] 03/07/2019 12:33:03 03/07/2019 23:59: 59 CLS Outpatient Fortunato Rodrigues [id number] 02/11/2019 16:17:00 02/11/2019 23:59: 59 CLS Outpatient Delvin Cutler Laura [id number] 01/12/2019 17:35:35 01/12/2019 23:59: 59 CLS Outpatient Helder Ramirez [id number] 01/02/2019 09:19:06 01/02/2019 23:59: 59 CLS Outpatient Helder Ramirez [id number] 10/27/2018 09:57:44 10/27/2018 23:59: 59 CLS Outpatient Felicita Tavarez [id number] 10/22/2018 09:04:24 10/22/2018 23:59: 59 CLS Outpatient Helder Ramirez [id number] 07/23/2018 19:24:07 07/23/2018 23:59: 59 CLS Outpatient Jose Morales [id number] 06/23/2018 17:40:36 06/23/2018 23:59: 59 CLS Outpatient Helder Ramirez [id number] 05/25/2019 06:03:00 019 12:25:00 DIS Outpatient ALBERT DPMANTONIIN Q [facility] JESSICA TRIMBLE [id number] 05/19/2019 05:36:00 14:59:00 DIS Outpatient ADAM PRICE DPM [facility] PREOP HALLUX VALGUS [id number] 02/07/2017 13:43:00 ACT Unknown
--- OUTSIDE RECORDS SUMMARY | 2019-06-19 05:31 | XMS REPORT ---
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
--- OUTSIDE RECORDS SUMMARY | 2019-06-19 05:31 | XMS REPORT ---
Author Author Oriana Ramirez Organization [facility] Address [address] [place], [place] [address] Care Team Providers Care Can Maker Name Role Phone Helder Ramirez PCP Helder Ramirez PreferredProvider Allergies and Adverse Reactions Name Reaction Notes NO KNOWN DRUG ALLERGIES Plan of Treatment Not available. Medications Name Start Date Expiration Date SIG Comments [...] HC BMI BSA BMI Percentile O2 Sat(%) 06/23/2018 4:41:00 PM 118 mmHg 72 mmHg 68 bpm 16 rpm 97.7 F 188.125 lbs 67. 25 in 29.2456 kg/m 2.0122 m 98 % 02/11/2013 8:46:00 AM 122 mmHg 92 mmHg 72 bpm 97.6 F 263.25 lbs 67 in 41.23 kg/m2 2.38 m2 07/11/2012 9:49:00 AM 137 mmHg 98 mmHg 90 bpm 97 F 266.25 lbs 67 in 41.7002 kg/m 2.3894 m 06/04/2012 9:16:00 AM 136 mmHg 90 mmHg 66 bpm 97.2 F 264 lbs 67 in 41.3478 kg/m 2.38 m2 Social History Name Description Comments Tobacco [...] 06/23/2018 12:00 AM THER/PROPH/DIAG INJ SC/IM Reviewed Results Summary Not available. History Of Immunizations Name Date Admin Mfg Name Mfg Code Trade Name Lot# Route Inj Vis Given Vis Pub CVX Influenza 03/20/2017 Not Entered NE Not Entered Not Entered Not Entered 06/17/2018 06/17/2018 158 Influenza 06/23/2018 ID Business Engine or [place] BCQ Flulaval qu adrivalent [id number] Intramuscular Right [...] of bariatric surgery Jun 23 2018 4:56PM Payers Insurance Name Company Name Plan Name Plan Number Policy Number Jg cy Group Number Start Date BCBS [employer] [place] [id number] N/ A BCBS Bcbs [facility] [id number] N/ A History of Encounters Visit Date Visit Type Provider 06/23/2018 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
--- OUTSIDE RECORDS SUMMARY | 2019-06-19 05:31 | XMS REPORT ---
Author Author Oriana Aragon Organization [employer] Address [address] [place] [address] Care Team Providers Care Produce Department Manager Name Role Phone Chelsea Aragon Unavailable PROBLEMS Type Condition ICD9-CM Code [id number] Code Onset Dates Condition S tatus SNOMED Code Problem Conjunctivitis, rosacea 372.31 Active 99303219 Problem Bunion of great toe of left foot 727.1 Active 980577037 Problem Vitamin D deficiency 268.9 Active 50943180 Problem Obesity (BMI 30.0-34.9) E66.9 Active 078051467450892 Problem General medical exam Z00.00 Active 319033974 Problem Gynecologic exam normal Z01.419 Active 28938563 Problem Hypertriglyceridemia E78.1 Active 806876195 Problem Screening For Breast Cancer Z12.39 Ac tive 070542940 Problem Vitamin D deficiency, unspecified E55.9 Active 21678851 Problem Morbid obesity with BMI of 45.0-49.9, adult 278.01 Active 954722154 Problem Allergic Rhinitis Unspecified 477.9 Active 26697682 Problem Back Pain, Low 724.2 Active 94262 9007 Problem Rosacea 695.3 Active 357363353 Problem Hyperhidrosis, 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 No Medical History Do you take OTC regularly? Yes Medical History Do you take Diet Supplements regularly? No Medical History Do you take any medications? Yes Medical History migraines Medical History neck pain Medical History low back pain Medical History rosacea Medical History "respiratory issues"; frequent bronchiti s Medical History DUB, resolved w/ Mirena Medical History knee pain Medical History occular rosacea Surgical History right knee arthoscopy 2007 Surgical History D&C x2 w/ miscarriages Surgical History foot surgery x2 Right foot 2014 Surgical History stomach sleeve nov 2014 Surgical History Hystorectomy 2016 Hospitalization History pre-eclampsia 2004
--- OUTSIDE RECORDS SUMMARY | 2019-06-19 05:31 | XMS REPORT ---
Author Author Oriana Morales [facility] Address [address] [place], [place] [address] Care Team Providers Care Data Technical Lead Name Role Phone Jose Morales PCP Helder [...] Entered 06/17/2018 06/17/2018 158 Influenza 06/23/2018 ID [employer] or [place] BCQ Flulaval qu [...] cy Group Number Start Date BCBS Bcbs [facility] [id number] N/ [id number] N/ A History of Encounters Visit Date Visit Type Provider 07/23/2018 Office visit Jose Morales NP 06/23/2018 Office visit Helder Ramirez 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
--- OUTSIDE RECORDS SUMMARY | 2019-06-19 05:31 | XMS REPORT ---
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
--- OUTSIDE RECORDS SUMMARY | 2019-06-19 05:31 | XMS REPORT ---
Author Author Oriana Morales [facility] Address [address] [place], [place] [address] Care Team Providers Care Tool Maker Bench Name Role Phone Jose Morales PCP Helder [...] Entered 06/17/2018 06/17/2018 158 Influenza 06/23/2018 ID [employer] or [employer] BCQ Flulaval qu adrivalent [id number] Intramuscular Right [...] cy Group Number Start Date BCBS Bcbs [facility] [id number] N/ [facility] [id number] N/ A History of Encounters Visit Date Visit Type Provider 07/23/2018 Office visit Jose Morales NP 06/23/2018 Office visit Helder Ramirez SOIL CONSERVATION AIDE 02/11/2013 Office visit Kelechi Ramos MD 07/11/2012 Office visit Kelechi Ramos MD 06/04/2012 Office visit Kelechi Ramos MD
--- OUTSIDE RECORDS SUMMARY | 2019-06-19 05:31 | XMS REPORT ---
Author Oriana Rascon Organization [employer] Address Unknown Phone Unavailable Care Team Providers Care Shot Peen Operator Name Role Phone REBECCA RUEDA CP Unavailable Allergies No Known Allergies Problems Problem Type Condition Code Onset Dates Condition Statu s Assessment Observation of other suspected mental condition Z03.89 Active Medications No Known Medications Procedures Procedure Coding System Code Date Psych diagnostic evaluation, new patient CPT-4 40062 Apr 07, 2015 Results No Known Results Summary Purpose [employer] Submission
== END 2019-05-25 12:25 | disposition home or self-care (01) ==
LOC: SDC 06:03
PROVIDERS: ATTEND Podiatrist Foot & Ankle Surgery
DX: M20.12 Hallux valgus (acquired), left foot (principal); T84.84XA Pain due to internal orthopedic prosthetic devices, implants and grafts, initial encounter; E66.01 Morbid (severe) obesity due to excess calories; Z91.018 Allergy to other foods; Z68.42 Body mass index [BMI] 45.0-49.9, adult; Z90.710 Acquired absence of both cervix and uterus; Z90.49 Acquired absence of other specified parts of digestive tract
CPT/HCPCS: 87081